=== PATIENT | female | born 1970 | race African-American/Black ===

== ENCOUNTER 2016-09-24 14:42 | Emergency (ER) | payer BC ==
[~2016-09-24] VITALS: Ht 160 cm; Wt 101.5 kg
[2016-09-24 14:45] VITALS: Ht 160 cm; Wt 101.5 kg
[2016-09-24 17:51] LABS: ADD UMIC YES; UR ASCORBIC ACID NEGATIVE (NEGATIVE); UR BILIRUBIN (Dip) NEGATIVE (NEGATIVE); UR BLOOD (Dip) 1+ mg/dL (NEGATIVE); UR CLARITY SLIGHTLY CLOUDY (CLEAR); UR COLOR YELLOW (YELLOW); UR GLUCOSE (Dip) NEGATIVE (NEGATIVE); UR KETONES (Dip) NEGATIVE (NEGATIVE); UR LEUKOCYTE ESTERASE (Dip) NEGATIVE Leu/ul (NEGATIVE); UR MUCUS MODERATE /HPF (NONE SEEN); UR NITRITE (Dip) NEGATIVE (NEGATIVE); UR RBC 3 /HPF (0-5); UR SPECIFIC GRAVITY (Dip) 1.023 (1.003-1.030); UR SQUAMOUS EPITHELIAL CELL FEW /HPF (FEW); UR TOTAL PROTEIN (Dip) NEGATIVE (NEGATIVE); UR UROBILINOGEN (Dip) NEGATIVE (NEGATIVE)
--- NOTE | 2016-09-24 17:51 | ERD ---
ER Documentation Chief Complaint Date/Time DATE: 09/24/16 TIME: 17:49 Chief Complaint DYSURIA SINCE YESTERDAY HPI 46-year-old female with history of type 2 diabetes, obesity, depression presents emergency department with multiple complaints. Patient reports painful urination, as well as vaginal itching and states she also has had dry eyes. She reports frequent urination as well as burning with urination, for the past 2 days. She also reports vaginal discharge that is white color, however denies any history of recent sexual intercourse. She has not had any pain that includes pelvic pain. She has not had any fevers or chills, nausea vomiting. She reports that she has had dry eyes for some time now, denies any blurry vision, redness to the eyes, drainage to the eyes, visual changes. ROS All systems reviewed and are negative except as per history of present illness. Medications Home Meds Active Scripts Dextran/Hypromellose/Glycerin (Artificial Tears Drops) 15 Ml Drops, 2 DROP BOTH EYES Q6, #1 EA Prov:HARRIET BRANCH PA-C 09/24/16 Fluconazole* (Diflucan*) 150 Mg Tablet, 150 MG PO ONCE, #1 TAB Prov:HARRIET BRANCH PA-C 09/24/16 Allergies Allergies: Coded Allergies: No Known Allergy (Unverified , 09/24/16) PMhx/Soc History of Surgery: Yes (appendectomy) Hx Alcohol Use: Yes Hx Substance Use: No Hx Tobacco Use: Yes Smoking Status: Current some day smoker Physical Exam Vitals Vital Signs Date Time Temp Pulse Resp B/P Pulse Ox O2 Delivery O2 Flow Rate FiO2 09/24/16 14:45 98.4 100 18 152/86 99 Physical Exam General: Well-developed, well-nourished. The patient appears in no acute distress. HEENT: Head is normocephalic, atraumatic. No scleral icterus. EOM intact, eyes Elle, there is no injection. No periorbital swelling. Neck: Supple. Nontender. Lungs: Clear to auscultation. Normal air movement. Heart: Regular rate and rhythm. S1 and S2 are normal. No murmurs, gallops, or rubs. Abdomen: Soft, nontender, nondistended. Bowel sounds are normoactive. : Patient refused speculum examination, external examination is benign, no rashes, no discharge. Extremities: No clubbing or cyanosis. Normal pulses. Moving extremities x 4. No weakness. Neurologic: Alert and oriented 3. No focal deficits. Skin: Normal turgor. No rash or lesions. Results 24 hrs Laboratory Tests Test 09/24/16 17:40 Urine Color YELLOW Urine Clarity SLIGHTLY CLOUDY Urine pH 5.0 Urine Specific Dietrich 1.023 Urine Ketones NEGATIVEmg/dL Urine Nitrite NEGATIVEmg/dL Urine Bilirubin NEGATIVEmg/dL Urine Urobilinogen NEGATIVEmg/dL Urine Leukocyte Esterase NEGATIVELeu/ul Urine Microscopic RBC 3/HPF Urine Microscopic WBC 1/HPF Urine Squamous Epithelial Cells FEW/HPF Urine Mucus MODERATE/HPF Urine Hemoglobin 1+mg/dL Urine Glucose NEGATIVEmg/dL Urine Total Protein NEGATIVEmg/dl Procedures/MDM MDM: 46-year-old female presents with dry eyes, she also comes in with history of vaginal itching. Will be treated for yeast vaginitis, no signs of PID, cervicitis or evidence of urinary tract infection. Departure Diagnosis: Primary Impression: Vaginitis Additional Impression: Dry eyes Condition: Good HARRIET BRANCH PA-C Sep 24, 2016 17:51
[2016-09-24] MEDS ORDERED: FLUC150T17 PO (18:05)
[2016-09-24] MEDS ORDERED: DEXT15DR2 BOTH EYES (18:05)
== END 2016-09-24 18:34 | disposition home or self-care (01) ==
LOC: FTE 14:42
DX: N76.0 Acute vaginitis (principal); F17.210 Nicotine dependence, cigarettes, uncomplicated; H04.129 Dry eye syndrome of unspecified lacrimal gland; E11.9 Type 2 diabetes mellitus without complications; E66.9 Obesity, unspecified; Z68.39 Body mass index [BMI] 39.0-39.9, adult
CPT/HCPCS: 81001; 99284

== ENCOUNTER 2016-11-10 19:28 | Emergency (ER) | payer BC ==
[~2016-11-10] VITALS: Wt 100.0 kg
[~2016-11-10 19:28] MED LIST: DEXT15DR2 BOTH EYES; FLUC150T17 PO
[2016-11-10] MEDS ORDERED: TETRACAINE 0.5% 4 ML OPH BOTH EYES ONE (21:00)
[2016-11-10] MEDS ORDERED: FLUORESCEIN STRIP BOTH EYES ONE (21:00)
[2016-11-10] MEDS ORDERED: OFLO5DRO46 BOTH EYES (21:05)
[2016-11-10] MEDS ORDERED: DEXT15DR2 BOTH EYES (21:05)
[2016-11-10 21:13] VITALS: BP 125/73; PULSE 76; RESP 20; TEMP 98.6
--- NOTE | 2016-11-10 22:13 | ERD ---
ER Documentation Chief Complaint Date/Time DATE: 11/10/16 TIME: 22:10 Chief Complaint Bilateral eye irritation HPI 46-year-old female coming in complaining of bilateral eye irritation. Patient states she cleans her carpets at her apartment in the solution in the carpet irritates her eyes. She states she is put eyedrops in her eyes in the past which have alleviated her symptoms. Denies visual changes. Denies use of contacts or glasses. Patient is requesting a note for her landlord to notify him that the solution in the carpet is causing her eye irritation. ROS All systems reviewed and are negative except as per history of present illness. Medications Home Meds Active Scripts Dextran/Hypromellose/Glycerin (Artificial Tears Drops) 15 Ml Drops, 2 DROP BOTH EYES Q6, #1 EA Prov:INGRIS LOZOYA PA-C 11/10/16 Ofloxacin* (Ocuflox*) 0.3%-5 Ml Ophth Drops, 1 DROP BOTH EYES QID, #1 BOTTLE Prov:INGRIS LOZOYA PA-C 11/10/16 Dextran/Hypromellose/Glycerin (Artificial Tears Drops) 15 Ml Drops, 2 DROP BOTH EYES Q6, #1 EA Prov:HARRIET BRANCH PA-C 09/24/16 Fluconazole* (Diflucan*) 150 Mg Tablet, 150 MG PO ONCE, #1 TAB Prov:HARRIET BRANCH PA-C 09/24/16 Allergies Allergies: Coded Allergies: No Known Allergy (Unverified , 09/24/16) PMhx/Soc History of Surgery: Yes (appendectomy) Hx Cardiac Disorders: No Hx Psychiatric Problems: No Hx Miscellaneous Medical Probl: No Hx Alcohol Use: Yes Hx Substance Use: No Hx Tobacco Use: Yes Smoking Status: Smoker,current status unk Physical Exam Vitals Vital Signs Date Time Temp Pulse Resp B/P Pulse Ox O2 Delivery O2 Flow Rate FiO2 11/10/16 21:13 98.6 76 20 125/73 100 Room Air 11/10/16 19:32 97.4 82 20 130/75 100 Physical Exam GENERAL: The patient is well-appearing, well-nourished, in no acute distress HEENT: Atraumatic. Conjunctivae are pink. Pupils equal, round, and reactive to light. There is no scleral icterus. Tympanic membranes clear bilaterally. Oropharynx clear. No nystagmus or photophobia. NECK: C-spine is soft and supple. There is no meningismus. There is no cervical lymphadenopathy. No JVD. No bruits. No goiter. CHEST: Clear to auscultation bilaterally. There are no rales, wheezes or rhonchi. HEART: Regular rate and rhythm. No murmurs, clicks, rubs or gallops. No S3 or S4. Results 24 hrs Current Medications Medications (Trade) Dose Ordered Sig/Erlin Route PRN Reason Start Time Stop Time Status Last Admin Dose Admin Tetracaine HCl (Tetracaine 0.5% Steri-Unit Paula) 1 drop ONCE ONCE BOTH EYES 11/10/16 21:00 11/10/16 21:01 DC Fluorescein Sodium ([id number]-O-Fsqbj) 1 strip ONCE ONCE BOTH EYES 11/10/16 21:00 11/10/16 21:01 DC Procedures/MDM ER course: Tetracaine and fluorescein stain used. No lacerations or ulcerations seen on the cornea. Visual acuity was within normal limits. MDM: I have low suspicion for visual deficits, or ocular injury. Patient likely has contact irritation secondary to her solution in the carpet. I will give ocular drops. I recommend patient to refrain from exposure to solution in the carpet. Patient is given a note to show her landlord. Patient is discharged with strict ER precautions and told to return if symptoms change or worsen. All questions answered time of discharge. Departure Diagnosis: Primary Impression: Eye problem Condition: Stable Patient Instructions: Understanding Red Eye: Causes Additional Instructions: FOLLOW UP WITH YOUR PRIMARY CARE PHYSICIAN TOMORROW.Return to this facility if you are not improving as expected. INGRIS LOZOYA PA-C Nov 10, 2016 22:13
== END 2016-11-10 21:13 | disposition home or self-care (01) ==
LOC: FTE 19:28
DX: H57.8 Other specified disorders of eye and adnexa (principal); F17.210 Nicotine dependence, cigarettes, uncomplicated
CPT/HCPCS: 99283; Z7610

== ENCOUNTER 2016-12-31 17:43 | Emergency (ER) | payer BC ==
[~2016-12-31] VITALS: Ht 167.6 cm; Wt 98.0 kg
[~2016-12-31 17:43] MED LIST changes: +OFLO5DRO46 BOTH EYES
[2016-12-31 18:00] VITALS: Ht 167.6 cm; Wt 98.0 kg
[2016-12-31] MEDS ORDERED: MUPI15CR9 TOP (21:14)
[2016-12-31] MEDS ORDERED: IBUP-1542 PO (21:14)
[2016-12-31] MEDS ORDERED: NPH10OT BOTH EARS (21:14)
[2016-12-31] MEDS ORDERED: AMOX1TAB10 PO (21:14)
--- NOTE | 2016-12-31 21:25 | ERD ---
ER Documentation Chief Complaint Chief Complaint left ear pain HPI 46-year-old otherwise healthy female presents the emergency department for complaints of left ear pain 2 weeks. Patient states that she experienced pain and popping in her left ear and attempted to remove wax with an incense stick. Patient states that since that time she has experienced increased pain and some drainage. She reports her pain at an 8 out of 10 constant throbbing pain localized to the left ear. She denies cough, fever, chills, headache, nausea, abdominal pain. ROS All systems reviewed and are negative except as per history of present illness. Medications Home Meds Active Scripts Ibuprofen* (Motrin*) 600 Mg Tab, 600 MG PO Q6H Y for PAIN for 7 Days, TAB Prov:BRITTNY MORATAYA PA-C 12/31/16 Mupirocin Calcium* (Mupirocin*) 2% - 15 Gram Cream..g., 1 APPLIC TOP TID, #1 TUB Prov:BRITTNY MORATAYA PA-C 12/31/16 Amoxicillin/Potassium Clav (Amox-Clav 875-125 mg Tablet) 875-125 mg Tab, 1 TAB PO BID, #20 TAB Prov:BRITTNY MORATAYA PA-C 12/31/16 Neomycin/Polymyxin/Hydrocort* (Cortisporin* Otic) 10 Ml Susp, 4 DROP BOTH EARS QID for 7 Days, EA Prov:BRITTNY MORATAYA PA-C 12/31/16 Dextran/Hypromellose/Glycerin (Artificial Tears Drops) 15 Ml Drops, 2 DROP BOTH EYES Q6, #1 EA Prov:INGRIS LOZOYA PA-C 11/10/16 Ofloxacin* (Ocuflox*) 0.3%-5 Ml Ophth Drops, 1 DROP BOTH EYES QID, #1 BOTTLE Prov:INGRIS LOZOYA PA-C 11/10/16 Dextran/Hypromellose/Glycerin (Artificial Tears Drops) 15 Ml Drops, 2 DROP BOTH EYES Q6, #1 EA Prov:HARRIET BRANCH PA-C 09/24/16 Fluconazole* (Diflucan*) 150 Mg Tablet, 150 MG PO ONCE, #1 TAB Prov:HARRIET BRANCH PA-C 09/24/16 Allergies Allergies: Coded Allergies: No Known Allergy (Unverified , 09/24/16) PMhx/Soc Medical and Surgical Hx: pt denies Medical Hx History of Surgery: Yes (APPY) Hx Cardiac Disorders: No Hx Psychiatric Problems: No Hx Miscellaneous Medical Probl: No Hx Alcohol Use: No Hx Substance Use: No Hx Tobacco Use: Yes Smoking Status: Current every day smoker Physical Exam Vitals Vital Signs Date Time Temp Pulse Resp B/P Pulse Ox O2 Delivery O2 Flow Rate FiO2 12/31/16 18:00 97.8 80 18 137/80 99 Physical Exam Const: Well-developed, well-nourished, no acute distress Head: Atraumatic Eyes: Normal Conjunctiva ENT: Left-sided ear canal mildly swollen with purulent discharge. Tympanic membrane visualized and erythematous. No swelling or erythema near the mastoid. No bulging. Right ear normal-appearing externally and tympanic membrane without erythema or swelling. Neck: Full range of motion..~ No meningismus.A small honey crusted lesion located at the left lateral neck Resp: Clear to auscultation bilaterally Cardio: Regular rate and rhythm, no murmurs Skin: No rashes or petechiae Back: No midline or flank tenderness Ext: No cyanosis, or edema Neur: Awake and alert Psych: Normal Mood and Affect Results 24 hrs Current Medications Medications (Trade) Dose Ordered Sig/Erlin Route PRN Reason Start Time Stop Time Status Last Admin Dose Admin Ibuprofen (Motrin) 600 mg ONCE ONCE PO 12/31/16 21:30 12/31/16 21:31 Procedures/MDM 46-year-old otherwise healthy female presents the emergency department for complaints of left-sided ear pain 2 weeks. Physical exam with evidence of acute otitis externa. Her left tympanic membrane was visualized and erythematous. Patient with possible otitis media. At this time low suspicion for mastoiditis, ruptured tympanic membrane, strep pharyngitis, pneumonia, severe systemic illness or sepsis. Patient stable for discharge and outpatient management. I have recommended topical and oral antibiotics as well as Motrin for pain. Patient also noted a rash to the skin of the upper neck. Physical exam with evidence of possible impetigo. I will be prescribing her topical mupirocin. Based on patient's history of present illness and physical examination the decision was made to discharge. The patient was re-evaluated after ED treatment and stabilizing measures, and symptoms have improved. There is no evidence of life threatening injuries or illnesses at this time. On re-examination, patient resting in no distress, stable vital signs, reports feeling better and safe for discharge with outpatient follow up with PMD in 1-2 days. Patient given return precautions. Departure Diagnosis: Primary Impression: Otitis externa Otitis externa type: unspecified type Chronicity: acute Laterality: left Qualified Code: H60.502 - Acute otitis externa of left ear, unspecified type Additional Impressions: Impetigo Left ear pain Condition: Good Patient Instructions: External Ear Infection (Adult) Additional Instructions: Call your primary care doctor TOMORROW for an appointment during the next 1-2 days.See the doctor sooner or return here if your condition worsens before your appointment time. BRITTNY MORATAYA PA-C Dec 31, 2016 21:25
[2016-12-31] MEDS ORDERED: IBUPROFEN 600 MG TAB PO ONE (21:30)
== END 2016-12-31 21:37 | disposition home or self-care (01) ==
LOC: FTE 17:43
DX: H60.502 Unspecified acute noninfective otitis externa, left ear (principal); L01.00 Impetigo, unspecified; F17.210 Nicotine dependence, cigarettes, uncomplicated
CPT/HCPCS: 99284; Z7610

== ENCOUNTER 2017-01-19 17:42 | Emergency (ER) | payer BC ==
[~2017-01-19] VITALS: Ht 165.1 cm; Wt 98.7 kg
[~2017-01-19 17:42] MED LIST changes: +AMOX1TAB10 PO; +IBUP-1542 PO; +MUPI15CR9 TOP; +NPH10OT BOTH EARS
[2017-01-19 17:45] VITALS: Ht 165.1 cm; Wt 98.7 kg
[2017-01-19] MEDS ORDERED: IBUP800T25 PO (18:22)
[2017-01-19] MEDS ORDERED: OFLO5DRO7 BOTH EARS (18:22)
--- NOTE | 2017-01-19 18:51 | ERD ---
ER Documentation Chief Complaint Chief Complaint Complains of bilateral ear pain x 1 month HPI 46-year-old female complaining of bilateral ear pain. Patient was seen here on 12/31/2016 for pain in the left ear. She was diagnosed with acute otitis externa and given prescription for Cortisporin otic, ibuprofen, and Bactroban. Patient states that the provider from the previous visit offered to give her a steroid shot for inflammation. She refused at that time, but she wants it now. Patient stated that she started having pain in her right ear last week. She has drainage from both her ears. Denies fever or chills. Denies headache or neck pain. ROS All systems reviewed and are negative except as per history of present illness. Medications Home Meds Active Scripts Ibuprofen* (Motrin*) 800 Mg Tab, 800 MG PO Q6H Y for PAIN AND OR ELEVATED TEMP, #30 TAB Prov:IWONA XAVIER. STRATEGIC DEBRIEFING OFFICER 01/19/17 Ofloxacin Otic (Ofloxacin Otic) 5 Ml Drops, 5 DROP BOTH EARS BID for 10 Days, # 1 BOTTLE Prov:IWONA XAVIER. STRATEGIC DEBRIEFING OFFICER 01/19/17 Ibuprofen* (Motrin*) 600 Mg Tab, 600 MG PO Q6H Y for PAIN for 7 Days, TAB Prov:BRITTNY MORATAYA PA-C 12/31/16 Mupirocin Calcium* (Mupirocin*) 2% - 15 Gram Cream..g., 1 APPLIC TOP TID, #1 TUB Prov:BRITTNY MORATAYA PA-C 12/31/16 Amoxicillin/Potassium Clav (Amox-Clav 875-125 mg Tablet) 875-125 mg Tab, 1 TAB PO BID, #20 TAB Prov:BRITTNY MORATAYA PA-C 12/31/16 Neomycin/Polymyxin/Hydrocort* (Cortisporin* Otic) 10 Ml Susp, 4 DROP BOTH EARS QID for 7 Days, EA Prov:BRITTNY MORATAYA PA-C 12/31/16 Dextran/Hypromellose/Glycerin (Artificial Tears Drops) 15 Ml Drops, 2 DROP BOTH EYES Q6, #1 EA Prov:INGRIS LOZOYA PA-C 11/10/16 Ofloxacin* (Ocuflox*) 0.3%-5 Ml Ophth Drops, 1 DROP BOTH EYES QID, #1 BOTTLE Prov:INGRIS LOZOYA PA-C 11/10/16 Dextran/Hypromellose/Glycerin (Artificial Tears Drops) 15 Ml Drops, 2 DROP BOTH EYES Q6, #1 EA Prov:HARRIET BRANCH PA-C 09/24/16 Fluconazole* (Diflucan*) 150 Mg Tablet, 150 MG PO ONCE, #1 TAB Prov:HARRIET BRANCH PA-C 09/24/16 Allergies Allergies: Coded Allergies: No Known Allergy (Unverified , 09/24/16) PMhx/Soc History of Surgery: Yes (APPY) Hx Cardiac Disorders: No Hx Psychiatric Problems: No Hx Miscellaneous Medical Probl: No Hx Alcohol Use: No Hx Substance Use: No Hx Tobacco Use: Yes Smoking Status: Never smoker Physical Exam Vitals Vital Signs Date Time Temp Pulse Resp B/P Pulse Ox O2 Delivery O2 Flow Rate FiO2 01/19/17 17:45 98.5 89 20 149/53 99 Physical Exam General: Well-developed, well-nourished, conscious and coherent, in no distress Skin: Warm and dry without rash, good texture and turgor Head: Normocephalic without evidence of trauma Eyes: Sclera and conjunctivae normal; pupils equal, round, and reactive to light; extraocular movements are intact Ears: Left ear canal mildly swollen with purulent discharge, unable to visualize tympanic membrane. Right ear canal extremely swollen with purulent discharge, unable to visualize tympanic membrane. Lateral tragal tenderness. No mastoid tenderness. Nose/Face: Without rhinorrhea Mouth/throat: Mucous membranes are moist. Posterior pharynx clear without erythema or exudates Neck: Supple without meningismus or adenopathy. Carotids are equal. Trachea midline. No bruits or JVD Chest: Normal AP diameter. Good expansion without retractions. Nontender. Lungs are clear to auscultate bilaterally with good tidal volume Heart: Regular rate and rhythm. No murmur, rub, or gallops heard Extremities: Full range of motion. Good strength bilaterally. No clubbing, cyanosis, or edema. Peripheral pulses are intact. Sensation intact Neuro: Alert and oriented 4, GCS 15. Cranial nerves grossly intact. Motor and sensory exams nonfocal. Moves all extremities. Speech clear. Gait normal Procedures/MDM Well-appearing 46-year-old female presents to the ED with acute otitis externa bilaterally. She does not have any mastoid tenderness, low suspicion for mastoiditis. I doubt malignant otitis externa. I doubt sepsis. Patient failed Cortisporin otic. I will prescribe for her ofloxacin otic. I feel she can benefit from wick placement. However, we are unable to do this for her here. Patient advised to follow-up with her PCP for a ENT referral. Patient request steroid injection for inflammation. I do not feel steroid injection is indicated for localized inflammation due to infection. I educated the patient regarding risks and benefits of steroid use. She will be given prescription ibuprofen for inflammation and pain. Patient appears well, stable for discharge and outpatient management. Medical decision making shared with patient and family. Education provided to patient and family. Patient and family expressed understanding of the plan. Medications on discharge: Ofloxacin otic, ibuprofen. Follow-up: Primary care provider in 2-3 days or return to ED if worse. Disclaimer: Inadvertent spelling and grammatical errors are likely due to EHR/ dictation software use and do not reflect on the overall quality of patient care. Also, please note that the electronic time recorded on this note does not necessarily reflect the actual time of the patient encounter. Departure Diagnosis: Primary Impression: Otitis externa Otitis externa type: unspecified type Chronicity: acute Laterality: bilateral Qualified Code: H60.503 - Acute otitis externa of both ears, unspecified type Condition: Stable Patient Instructions: External Ear Infection (Adult) Referrals: [facility] YOU HAVE RECEIVED A MEDICAL SCREENING EXAM AND THE RESULTS INDICATE THAT YOU DO NOT HAVE A CONDITION THAT REQUIRES URGENT TREATMENT IN THE EMERGENCY DEPARTMENT. FURTHER EVALUATION AND TREATMENT OF YOUR CONDITION CAN WAIT UNTIL YOU ARE SEEN IN YOUR DOCTORS OFFICE WITHIN THE NEXT 1-2 DAYS. IT IS YOUR RESPONSIBILITY TO MAKE AN APPOINTMENT FOR FOLOW-UP CARE. IF YOU HAVE A PRIMARY DOCTOR --you should call your primary doctor and schedule an appointment IF YOU DO NOT HAVE A PRIMARY DOCTOR YOU CAN CALL OUR PHYSICIAN REFERRAL HOTLINE AT IF YOU CAN NOT AFFORD TO SEE A PHYSICIAN YOU CAN CHOSE FROM THE FOLLOWING [facility]ATRIC HOSPITAL CLINICS [facility] [address] [facility] [facility] [address] [facility] [address] [facility]. [facility] [address] [facility]. [facility] [address] [facility]. [facility] [address] Additional Instructions: Call your primary care doctor TOMORROW for an appointment during the next 1-2 days.See the doctor sooner or return here if your condition worsens before your appointment time. You will need to see an ENT specialist. Ask your primary provider for a referral. IWONA XAVIER. UMESH Jan 19, 2017 18:39
== END 2017-01-19 18:44 | disposition home or self-care (01) ==
LOC: FTE 17:42
DX: H60.503 Unspecified acute noninfective otitis externa, bilateral (principal); Z87.891 Personal history of nicotine dependence
CPT/HCPCS: 99283

== ENCOUNTER 2017-03-11 12:44 | Emergency (ER) | END 2017-03-11 16:34 | disposition home or self-care (01) ==